=== PATIENT | female | born 1995 | race Caucasian/White ===

== ENCOUNTER 2018-06-02 09:17 | Inpatient (IN) | END 2018-06-05 16:00 | disposition home or self-care (01) | DRG 788 ==

== ENCOUNTER 2018-12-30 15:28 | Emergency (ER) | payer OTHER ==
[~2018-12-30] VITALS: Ht 167.6 cm; Wt 160.0 kg
[~2018-12-30 15:28] MED LIST: IBUP-1544 PO; IBUP-1561 PO; RANI150T35 PO
[2018-12-30 15:45] VITALS: Ht 167.6 cm; Wt 160.0 kg
--- NOTE | 2018-12-30 16:41 | ERD ---
ER Documentation Chief Complaint Chief Complaint LUQ/EPI PAIN X 2 DAYS HPI The patient is a 23-year-old female, presenting to the ER because of epigastric/upper quadrant abdominal pain that began around 10 AM, associated with heartburn and constipation. The symptoms happen after she ate a spicy chicken, has been intermittent, has similar symptoms previously. She denies fever, chills, neck pain, chest pain, dyspnea, dysuria. She does not smoke nor drink, has irregular menstrual period Past medical history: Cholelithiasis Past surgical history: ROS All systems reviewed and are negative except as per history of present illness. Medications Home Meds Active Scripts Ibuprofen* (Motrin*) 600 Mg Tab, 600 MG PO Q6H PRN for PAIN AND OR ELEVATED TEMP, #30 TAB Prov:LUIS JOYNER MD 12/30/18 Pantoprazole* (Protonix*) 40 Mg Tablet.dr, 40 MG PO DAILY, #20 TAB Prov:LUIS JOYNER MD 12/30/18 Discontinued Scripts Ranitidine Hcl* (Zantac*) 150 Mg Tablet, 150 MG PO BID PRN for EPIGASTRIC PAIN, #30 TAB Prov:DEBI CHAPA MD 09/15/18 Ibuprofen* (Motrin*) 400 Mg Tab, 400 MG PO Q8, #30 TAB Prov:DEBI CHAPA MD 09/15/18 Ibuprofen* (Ibuprofen*) 800 Mg Tablet, 800 MG PO Q8, #60 TAB 0 Refills Prov:WESTON ESTEVEZ MD 06/04/18 Allergies Allergies: Coded Allergies: No Known Allergy (Unverified , 12/30/18) PMhx/Soc History of Surgery: Yes (C SECTION) Anesthesia Reaction: No Hx Neurological Disorder: No Hx Respiratory Disorders: No Hx Cardiac Disorders: No Hx Psychiatric Problems: No Hx Miscellaneous Medical Probl: No Hx Alcohol Use: No Hx Substance Use: No Hx Tobacco Use: No Smoking Status: Never smoker Physical Exam Vitals Vital Signs Date Temp Pulse Resp B/P (MAP) Pulse Ox O2 O2 Flow FiO2 Time Delivery Rate 12/30/18 98.7 64 17 113/64 100 Room Air 18:12 (80) 12/30/18 98.7 61 16 116/68 99 Room Air 16:37 (84) 12/30/18 99.9 87 18 138/70 99 15:45 (92) Physical Exam Const: No acute distress. Head: Atraumatic. Eyes: Normal Conjunctiva. ENT: Normal External Ears, Nose and Mouth. Neck: Full range of motion. No meningismus. Resp: Clear to auscultation bilaterally. Cardio: Regular rate and rhythm. Abd: Soft, non distended, normal bowel sounds, mild epigastric and left upper quadrant discomfort, no right lower groin/right upper quadrant/rigidity/rebound or CVA tenderness. Skin: No petechiae or rashes. Back: No midline or flank tenderness. Ext: No cyanosis, or edema. Neur: Awake and alert. No focal deficit Psych: Normal Mood and Affect. Result Diagram: 12/30/18 1701 12/30/18 1701 Results 24 hrs Laboratory Tests Test 12/30/18 16:58 12/30/18 17:01 Bedside Urine pH (LAB) 6.0 Bedside Urine Protein (LAB) Negative Bedside Urine Glucose (UA) Negative Bedside Urine Ketones (LAB) Negative Bedside Urine Blood 2+ Bedside Urine Nitrite (LAB) Negative Bedside Urine Leukocyte Esterase (L Negative White Blood Count 14.0 10^3/ul Red Blood Count 4.49 10^6/ul Hemoglobin 13.9 g/dl Hematocrit 42.9 % Mean Corpuscular Volume 95.5 fl Mean Corpuscular Hemoglobin 31.0 pg Mean Corpuscular Hemoglobin Concent 32.4 g/dl Red Cell Distribution Width 12.2 % Platelet Count 229 10^3/UL Mean Platelet Volume 11.6 fl Immature Granulocytes % 0.400 % Neutrophils % 70.5 % Lymphocytes % 23.9 % Monocytes % 4.0 % Eosinophils % 0.4 % Basophils % 0.8 % Nucleated Red Blood Cells % 0.0 /100WBC Immature Granulocytes # 0.050 10^3/ul Neutrophils # 9.9 10^3/ul Lymphocytes # 3.3 10^3/ul Monocytes # 0.6 10^3/ul Eosinophils # 0.1 10^3/ul Basophils # 0.1 10^3/ul Nucleated Red Blood Cells # 0.0 10^3/ul Sodium Level 141 mmol/L Potassium Level 4.0 mmol/L Chloride Level 104 mmol/L Carbon Dioxide Level 28 mmol/L Anion Gap 9 Blood Urea Nitrogen 12 mg/dl Creatinine 0.62 mg/dl Est Glomerular Filtrat Rate mL/min > 60 mL/min Glucose Level 172 mg/dl Calcium Level 9.5 mg/dl Total Bilirubin 0.9 mg/dl Direct Bilirubin 0.00 mg/dl Indirect Bilirubin 0.9 mg/dl Aspartate Amino Transf (AST/SGOT) 20 IU/L Alanine Aminotransferase (ALT/SGPT) 23 IU/L Alkaline Phosphatase 78 IU/L Total Protein 7.8 g/dl Albumin 4.4 g/dl Globulin 3.40 g/dl Albumin/Globulin Ratio 1.29 Lipase 55 U/L POC Beta HCG, Qualitative NEGATIVE Current Medications Medications Dose Sig/Tigre Start Time Status Last (Trade) Ordered Route PRN Stop Time Admin Dose Reason Admin Sodium 1,000 ml @ Q1H STAT 12/30/18 DC 12/30/18 Chloride 1,000 mls/hr IV 16:42 17:25 12/30/18 17:41 Sodium 1,000 ml @ Q1H ONCE 12/30/18 Chloride 1,000 mls/hr IV 17:30 12/30/18 18:29 40 mg ONCE ONCE 12/30/18 DC 12/30/18 Pantoprazole IV 17:30 17:24 (Protonix 12/30/18 17:31 Iv) Ketorolac 30 mg ONCE STAT 12/30/18 DC 12/30/18 Tromethamine IV 17:09 17:24 (Toradol) 12/30/18 17:14 40 ml ONCE ONCE 12/30/18 DC Miscellaneous PO 18:00 Medication 12/30/18 18:09 (Gi Cocktail (2)) Procedures/MDM MEDICAL MAKING DECISION: The patient is a 23-year-old female, presenting with acute pericolic, acute hematuria. She was treated with 1 L normal saline for clinical dehydration, Protonix 40 mg IV and GI cocktail for epigastric abdominal pain and Toradol 30 mg IV for pain with good response. She is stable for outpatient follow-up The differential diagnoses considered include but are not limited to cholelithiasis, cholecystitis, renal colic, choledocholithiasis, cholangitis, pancreatitis, hepatitis, gastritis, peptic ulcer disease, gastric ulcer, appendicitis, cystitis, diverticulitis, partial small bowel obstruction. Departure Diagnosis: Primary Impression: Biliary colic Condition: Good Comments She was discharged with Protonix and Motrin I discussed the findings with the patient. 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 Disclaimer: Inadvertent spelling and grammatical errors are likely due to EHR/dictation software use and do not reflect on the overall quality of patient care. Also, please note that the electronic time recorded on this note does not necessarily reflect the actual time of the patient encounter. LUIS JOYNER MD December 30, 2018 16:41
[2018-12-30] MEDS ORDERED: SOD CHLORIDE 0.9% 1,000 ML IV STA (16:42)
[2018-12-30] MEDS ORDERED: KETOROLAC 30 MG INJ IV STA (17:09)
[2018-12-30] MEDS ORDERED: PANTOPRAZOLE 40 MG INJ IV ONE (17:30)
[2018-12-30] MEDS ORDERED: SOD CHLORIDE 0.9% 1,000 ML IV ONE (17:30)
[2018-12-30] MEDS ORDERED: LIDOCAINE/MYLANTA 40 ML BTL PO ONE (18:00)
[2018-12-30] MEDS ORDERED: PANT40TA3 PO (18:04)
[2018-12-30] MEDS ORDERED: IBUP-1542 PO (18:04)
[2018-12-30 18:12] VITALS: BP 113/64; PULSE 64; RESP 17
== END 2018-12-30 18:22 | disposition home or self-care (01) ==
LOC: E/R 15:28
DX: K80.20 Calculus of gallbladder without cholecystitis without obstruction (principal)
CPT/HCPCS: 36415; 80053; 81003; 81025; 83690; 85025; 96374; 96375; C9113; J1885; J7030; Z7502; Z7610